=== PATIENT | male | born 1995 | race Caucasian/White ===

== ENCOUNTER → 2018-08-19 | Outpatient (CLI) | payer OTHER ==
[~2018-08-19] MED LIST: IOHEXOL 350 MG/ML 100 ML (OMNIPAQUE 350) VIAL IV ONE; NS 100 ML (IVPB) BAG IV ONE; RECEIVED CONTRAST (Hold Metformin) IV SCH
--- NOTE | 2018-08-19 12:41 | Diagnostic Imaging Report ---
CLINICAL INDICATION: Patient in for sport physical, doctor noticed a lump on left posterior region of the neck. BB placed in area of interest. EXAM: Axial CT scan of the neck soft tissue performed with 75 cc of Omnipaque 350 IV contrast. Coronal and sagittal reformatted images are created. COMPARISON: None. FINDINGS: There is prominence of the posterior nasopharyngeal adenoid soft tissue and bilateral palatine tonsillar tissue. There is mild prominence of the posterior lingual adenoid soft tissue. These findings may be reactive. There are multiple subcentimeter short axis, lymph nodes seen throughout both sides and also in the region near the left posterior neck skin marker. The largest lymph node in the left posterior neck/level 2A/B region measures 11 mm x 7 mm. These lymph nodes may be reactive. Otherwise, the nasopharynx, oropharynx, hypopharynx, and laryngeal soft tissue structures are unremarkable. 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 There is significant atrophy and fatty replacement of the posterior and deep lobe of the right parotid gland. There is small amount of right parotid gland tissue seen posterior laterally adjacent to the yield improvement engineer space. There is no evidence of surgical clips with scarring seen. The bilateral submandibular glands are unremarkable. Thyroid gland is unremarkable. The neck vascular structures are patent and unremarkable as visualized. The visualized upper lung adams and, intracranial structures, orbits, and globes are unremarkable. Cervical spine shows minimal posterior spurring at the C2-C3, C3-C4 C4-C5, and C6-C7 levels. There is no significant central canal or neural foramen narrowing. IMPRESSION: 1: There is no neck soft tissue mass seen. There are multiple bilateral neck lymph nodes which are not significantly enlarged by size criteria. There are also lymph nodes seen beneath the left neck skin marker. Thee lymph nodes are suspected to be reactive. 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 There is no significant mass seen in these regions. Clinical correlation for surgical resection may also be considered. 3: There is prominence of the posterior nasopharyngeal adenoid soft tissue, bilateral palatine tonsillar tissue and posterior lingual soft tissue. These findings are suspected to be reactive. Dictated by: Dictated on workstation # [id number]
== END ==
LOC: RAD 11:38
PROVIDERS: ATTEND Internal Medicine
DX: Z02.5 Encounter for examination for participation in sport (principal); K11.0 Atrophy of salivary gland; R59.0 Localized enlarged lymph nodes
CPT/HCPCS: 70491